=== PATIENT | female | born 1960 | race Caucasian/White ===

== ENCOUNTER 2018-07-22 11:29 | Outpatient (CLI) | payer BC | END 2018-07-22 11:30 | disposition home or self-care (01) | LOC: SC 11:29 | PROVIDERS: ATTEND Internal Medicine Pulmonary Disease | DX: G47.33 Obstructive sleep apnea (adult) (pediatric) (principal) | CPT/HCPCS: 99203; 99212 ==

== ENCOUNTER 2018-07-31 11:46 | Outpatient (CLI) | payer BC ==
--- NOTE | 2018-08-01 08:58 | Mammography Report ---
Reason: SCREENING MAMMO Procedure Date: 07/31/2018 Accession Number: [id number] / [id number] Procedure: MGN - Screening Mammo Dig Bilat CPT Code: FULL RESULT: EXAM: Screening Mammo Dig Bilat DATE: 07/31/2018 12:13 PM CLINICAL HISTORY: Screening encounter. History of nulliparity. History of benign left breast biopsy. Family history of breast cancer in the mother at age 55. TECHNIQUE: (B) - Bilateral CC and MLO views were obtained. COMPARISON: 07/13/2017 through 06/05/2014. PARENCHYMAL PATTERN: (A) - The breast(s) demonstrate(s) scattered fibroglandular densities. FINDINGS: The left cc view and left MLO view are technically inadequate and additional images need to be performed. There are no suspicious masses, calcifications, or areas of distortion in the right breast. IMPRESSION: Incomplete examination. BI-RADS category 0. RECOMMENDATION: (REPEAT) - Left breast CC view and left breast MLO view. BI-RADS CATEGORY: (0) - Incomplete Examination - need additional evaluation. STANDARD QUALIFYING STATEMENTS: 1. This examination was not reviewed with the aid of Computer-Aided Detection (CAD). 2. A negative or benign imaging report should not preclude biopsy if clinically suspicious findings are present. 3. Dense breasts may obscure an underlying neoplasm. 4. This examination was reviewed without the aid of 3D breast imaging (tomosynthesis).
== END 2018-07-31 11:47 | disposition home or self-care (01) ==
LOC: DI.N 11:46
DX: Z12.31 Encounter for screening mammogram for malignant neoplasm of breast (principal); Z80.3 Family history of malignant neoplasm of breast
CPT/HCPCS: 77067

== ENCOUNTER 2018-08-05 10:29 | Outpatient (CLI) | payer BC ==
--- NOTE | 2018-08-05 13:56 | Mammography Report ---
Reason: ROUTINE MAMMO Procedure Date: 08/05/2018 Accession Number: [id number] / [id number] Procedure: MGN - Screening Mammo Dig Bilat CPT Code: FULL RESULT: EXAM: Screening Mammo Dig Bilat DATE: 08/05/2018 11:20 AM CLINICAL HISTORY: The patient is recalled from screening for recommendation of technically inadequate images. Interpretation is rendered in conjunction with images obtained 07/31/2018. TECHNIQUE: (B) - Bilateral CC and MLO views were obtained. The left CC and MLO views are repeated on 08/05/2018. COMPARISON: 07/23/2017 through 06/05/2014. PARENCHYMAL PATTERN: (A) - The breast(s) demonstrate(s) scattered fibroglandular densities. FINDINGS: A biopsy marker is noted in the left breast. There are no suspicious masses, calcifications, or areas of distortion. IMPRESSION: Benign findings. BI-RADS category 2. RECOMMENDATION: (ANNUAL) - Recommend routine annual screening mammography. BI-RADS CATEGORY: (2) - Benign Findings. STANDARD QUALIFYING STATEMENTS: 1. This examination was not reviewed with the aid of Computer-Aided Detection (CAD). 2. A negative or benign imaging report should not preclude biopsy if clinically suspicious findings are present. 3. Dense breasts may obscure an underlying neoplasm. 4. This examination was reviewed without the aid of 3D breast imaging (tomosynthesis).
== END 2018-08-05 10:30 | disposition home or self-care (01) ==
LOC: DI.N 10:29
PROVIDERS: ATTEND Internal Medicine
DX: Z12.31 Encounter for screening mammogram for malignant neoplasm of breast (principal)
CPT/HCPCS: 77067

== ENCOUNTER 2018-10-03 11:37 | Outpatient (CLI) | payer BC ==
--- NOTE | 2018-10-04 13:04 | XRAY Report ---
Reason: CHRONIC COUGH Procedure Date: 10/03/2018 Accession Number: [id number] / [id number] Procedure: XRN - Chest 2 View X-Ray CPT Code: 57666 FULL RESULT: EXAM: CHEST RADIOGRAPHY EXAM DATE: 10/03/2018 11:54 AM. CLINICAL HISTORY: Chronic cough for 7 months. COMPARISON: None. TECHNIQUE: 2 views. FINDINGS: Lungs/Pleura: No focal opacities evident. No pleural effusion. No pneumothorax. Normal volumes. Mediastinum: Heart and mediastinal contours are unremarkable. Other: Mild midthoracic dextrocurvature, physiologic. The remaining visualized bones and soft tissues are unremarkable. IMPRESSION: No radiographic evidence of acute cardiopulmonary disease. [facility]
== END 2018-10-03 11:38 | disposition home or self-care (01) ==
LOC: DI.N 11:37
PROVIDERS: ATTEND Family Medicine
DX: R05 Cough (principal)
CPT/HCPCS: 71046

== ENCOUNTER 2019-01-15 09:54 | Outpatient (CLI) | payer BC ==
--- NOTE | 2019-01-16 17:44 | XRAY Report ---
Reason: 2,3,5 DIGIT LEFT TOE PAIN Procedure Date: 01/15/2019 Accession Number: [id number] / [id number] Procedure: WCP - Toe(s) LT CPT Code: Final Report FULL RESULT: EXAM: LEFT TOE RADIOGRAPHY EXAM DATE: 01/15/2019 09:54 AM. CLINICAL HISTORY: 2,3,5 DIGIT LEFT TOE PAIN. COMPARISON: None. TECHNIQUE: 3 views. FINDINGS: Bones: Normal. No fracture or bone lesion. Joints: Normal. No subluxations. Soft Tissues: Normal. No soft tissue swelling. IMPRESSION: Negative toe radiography. [facility]
== END 2019-01-15 23:59 | disposition home or self-care (01) ==
LOC: DI.WCP 09:54
PROVIDERS: ATTEND Family Medicine
DX: M79.675 Pain in left toe(s) (principal)
CPT/HCPCS: 73660